=== PATIENT | female | born 1985 | race Caucasian/White ===

== ENCOUNTER 2024-12-15 13:43 | Emergency (ER) | payer OTHER, SELFPAY ==
[2024-12-15 13:45] VITALS: BP 131/89
--- NOTE | 2024-12-15 14:54 | ED.GENMED ---
History of Present Illness
General
Chief Complaint: Allergic Reaction
Time Seen by Provider: 12/15/24 14:02
History of Present Illness
History of Present Illness:
39-year-old female without significant past medical history presenting for concern of allergic reaction. Patient reports prior to arrival she had a carbonated beverage called [employer], guava passion fruit. Reports after consuming the beverage,
started to have tongue swelling and feeling like her throat was closing. Notes that she did have an allergic reaction in the past, at that time it was anaphylaxis and did require epinephrine. She believes it was from doxycycline. She took a
Benadryl after symptoms started and reports that her symptoms have overall improved, still does feel some throat tightness. Denies difficulty breathing. Denies any significant emesis. Denies abdominal pain. Denies rash. Denies additional
complaints
Phy Exam
Physical Exam
Physical Exam:
General: Well-appearing, no clinical signs of dehydration, nontoxic and in no acute distress
HEENT: protecting airway, no oropharyngeal swelling. No stridor, normal phonation of voice
Neck: appears supple
CV: Normal heart rate, regular rhythm
Resp: No accessory muscle use, no increased work of breathing, lungs clear to auscultation bilaterally
Abd: no distension
Extremities: No deformities, no swelling
Neuro: alert, no focal neurologic deficit
: deferred
Rectal: deferred
Psych: Normal affect
Skin: Intact
Course
Orders/Labs/Results
Orders:
Orders
12/15/24 14:52
Dexamethasone Pf [Decadron] 10 mg PO NOW STA
Vital Signs
Initial and Last Documented VS:
Initial Vital Signs
Temp Pulse Resp BP Pulse Ox
98.4 F 93 16 131/89 98
12/15/24 13:45 12/15/24 13:45 12/15/24 13:45 12/15/24 13:45 12/15/24 13:45
Last Documented Vital Signs
Temp Pulse Resp BP Pulse Ox
98.4 F 78 16 131/89 97
12/15/24 13:45 12/15/24 14:34 12/15/24 13:45 12/15/24 13:45 12/15/24 14:34
MDM/Problems Addressed
MDM/Problems Addressed:
39-year-old female presenting for concern of allergic reaction vital signs on arrival are normal.
On exam, patient is resting comfortably, no acute distress or discomfort. Patient reports she is still feeling some throat discomfort. No present respiratory compromise, normal phonation of voice, no stridor, no wheezing. No additional systemic
symptoms without concern for anaphylaxis. Will treat with Decadron given persistent throat irritation will continue to monitor with plan for outpatient follow-up. Advised formal allergy testing. Will prescribe EpiPen. Return precautions discussed
*Critical Care Note
Total Time (30-74mins, 75-104mins- exclusive of procedures): Not Applicable
ED Attending Note
-
Portions of this chart may have been created with voice recognition software.� Occasional wrong word or��sound alike� substitutions may have occurred due to the inherent limitations of voice recognition software.
Discharge Plan
Departure
Referrals:
NONE,* [Family Provider] -
Interventions
Interventions:
*Risk Screen - Suicide Last Done: 12/15/24 13:45
*General Assessment Last Done: 12/15/24 13:45
*Neglect/Abuse Screening Last Done: 12/15/24 13:45
*ED- Fall Risk Assessment Last Done: 12/15/24 13:45
*ED COVID-19 Vaccine History Last Done: 12/15/24 13:45
ED- Cardiac Assessment Last Done: 12/15/24 13:56
ED- Pulmonary Assessment Last Done: 12/15/24 13:56
ED-Skin Assessment Last Done: 12/15/24 13:56
Discharge Date and Time
Print Language: SOMALI
[2024-12-15] MEDS: DECADRON 10 MG PO (14:59)
[2024-12-15 15:55] VITALS: BP 106/78
== END 2024-12-15 16:06 | disposition home or self-care (01) ==
LOC: EMR 13:43
PROVIDERS: EMERGENCY PHYSICIAN Student in an Organized Health Care Education/Training Program
DX: T78.40XA Allergy, unspecified, initial encounter (principal); X58.XXXA Exposure to other specified factors, initial encounter; R09.89 Other specified symptoms and signs involving the circulatory and respiratory systems
CPT/HCPCS: 99283

== ENCOUNTER → 2025-07-15 07:18 | Outpatient (REF) | payer OTHER, SELFPAY | LOC: HWWDC 07:18 | PROVIDERS: ATTENDING PHYSICIAN Nurse Practitioner Adult Health; FAMILY PHYSICIAN Student in an Organized Health Care Education/Training Program | DX: Z12.31 Encounter for screening mammogram for malignant neoplasm of breast (principal) | CPT/HCPCS: 77063; 77067 ==

== ENCOUNTER → 2025-07-27 08:33 | Outpatient (REF) | payer OTHER, SELFPAY | LOC: WDC 08:33 | PROVIDERS: ATTENDING PHYSICIAN Nurse Practitioner Adult Health; FAMILY PHYSICIAN Student in an Organized Health Care Education/Training Program | DX: R92.8 Other abnormal and inconclusive findings on diagnostic imaging of breast (principal) | CPT/HCPCS: 77065 ==